=== PATIENT | female | born 1955 | race Caucasian/White ===

== ENCOUNTER → 2016-08-12 | Outpatient (CLI) | payer MEDICARE, OTHER ==
--- NOTE | 2016-08-14 13:42 | PE ---
EXAMINATION TYPE: PET CT fusion skull to thigh DATE OF EXAM: 08/12/2016 10:00 AM COMPARISON: NONE HISTORY: Lung cancer, initial staging study, right upper lobe mass. TECHNIQUE: Following the intravenous administration of 10.79 mCi of F-18 FDG, whole body images are performed from the skull base to the midthigh. Images are reviewed on the computer in the coronal, a xial, and sagittal planes. Reconstructed rotating images are created on independent workstation and reviewed on the computer. A CT is performed in conjunction with the PET scan. SCAN: Initial Scan FINDINGS: SKULL BASE AND NECK: No suspicious hypermetabolic uptake is present. CHEST, MEDIASTINUM, AND HILAR REGION: Spiculated nodule right upper lobe measures 7 x 6 mm on axial i mage 89 without abnormal hypermetabolic uptake. No additional suspicious nodules or masses identified . Background moderate emphysematous change is present. No suspicious hypermetabolic uptake is seen in t he thorax. ABDOMEN AND PELVIS: No suspicious hypermetabolic uptake is seen. OSSEOUS STRUCTURES: No abnormal hypermetabolic uptake is seen. OTHER CT: There is moderate to severe mucosal thickening in visualized right maxillary sinus. Coronary artery calcification is present which is noted marker for coronary artery disease. There is small to borderline moderate pericardial effusion seen anteriorly and inferiorly on axial image 128. No adrenal masses are seen. There is large dependent calcified gallstone in gallbladder. There is moderate calcified atherosclerotic change of the abdominal aorta extending into pelvic branc h vessels. Uterus is surgically absent or markedly atrophic in appearance. Sigmoid colonic diverticula are seen. There is multilevel spurring in the spine. There is facet arthropathy lower lumbar levels. IMPRESSION: No suspicious hypermetabolic uptake is seen to suggest malignancy. There is spiculated 7 x 6 mm right upper lobe nodule noted. PET/CT is somewhat insensitive for lesions under [address] imaging follow-up is advised as per Fleischner Society recommendations for high risk patient t o monitor this lesion despite negative PET/CT.
== END | disposition home or self-care (01) ==
LOC: RADPETMAIN 07:34
PROVIDERS: ATTEND Internal Medicine
DX: R91.1 Solitary pulmonary nodule (principal); R91.8 Other nonspecific abnormal finding of lung field
CPT/HCPCS: 78815; A9552